=== PATIENT | female | born 1960 | race Caucasian/White ===

== ENCOUNTER 2018-03-04 04:31 | Inpatient (IN) | payer BC ==
[2018-03-04] VITALS (7 sets, daily range): BP systolic 125–187; BP diastolic 75–101; PULSE 83–97; TEMP 36.7–37.1; O2SAT 94–97; Ht 167.6 cm; Wt 85.3 kg
[~2018-03-04] VITALS: Ht 167.6 cm; Wt 85.3 kg
[2018-03-04] MEDS ORDERED: DIAZEPAM 5MG TAB PO ONE (06:43)
[2018-03-04] MEDS ORDERED: LORAZEPAM 2 MG/ML 1 ML VIAL IV PRN (06:45)
[2018-03-04] MEDS ORDERED: ONDANSETRON INJ 2 MG/ML 2 ML VIAL IV PRN (06:45)
[2018-03-04] MEDS ORDERED: DIAZEPAM 2MG TAB PO ONE (06:45)
--- NOTE | 2018-03-04 07:12 | History and Physical ---
History & Physical Date & Time of Service: Mar 04, 2018 at 06:58 Chief Complaint: Alcohol Withdrawl Primary Care Physician: Joseph Ortega D.O. History of Present Illness Source: patient Patient is a 57yo female with history of HTN, Hypothyroidism, EtOH abuse presenting to ER at [facility] complaining of leg cramping, tremors and headache x 1 day. Also with complaints of palpitations and feeling of anxiety. Patient has a significant history of EtOH abuse. She admits to drinking 4 shots/day for the last year. Her last drink was reported to be yesterday 18August at appx 22:00 when she had a glass of wine. She has been in EtOH withdrawals 5 times in the past. No history of seizure, no history of intubation. She has been to inpatient rehabilitation twice prior and has been in AA. She was to start a detox program yesterday, however was unhappy with the conditions at the facility and therefore left. Patient presently with complaint of calf cramping. No additional complaints at this time. She feels that these symptoms are similar to previous episodes of EtOH withdrawal. OSH: Ativan 1mg IV, NSS x 1 liter Past Medical/Surgical History Medical Problems: Hypertension Hypothyroidism EtOH abuse with history of withdrawal Anxiety Depression Pulmonary embolism Past Surgical History: Breast reduction x 3 Hysterectomy Tonsillectomy and adenoidectomy Cholecystectomy Ankle surgery Family History FH: dementia FH: diabetes mellitus Social History Smoking Status: Current Every Day Smoker Smokeless Tobacco Use: No Alcohol Use: heavy Drug Use: none Marital Status: Housing status: lives with family Occupational Status: unemployed Allergies Coded Allergies: BEE STING (Verified Allergy, Intermediate, unknown, 03/04/18) Lisinopril (Verified Allergy, Intermediate, unknown, 03/04/18) NUTS (Verified Allergy, Intermediate, unknown, 03/04/18) Penicillins (Verified Allergy, Intermediate, unknown, 03/04/18) Review of Systems Constitutional: No fever, No chills, No sweats, No weight loss, No weakness Eyes: No worsening of vision, No diplopia ENT: No hearing loss, No sore throat, No trouble swallowing Respiratory: No cough, No wheezing, No shortness of breath Cardiovascular: + palpitations, No chest pain Abdomen: No pain, No nausea, No vomiting, No diarrhea, No constipation Musculoskeletal: No joint pain, No muscle pain Genitourinary - Female: No dysuria, No urinary urgency Neurologic: + weakness (complaining of weakness in legs) Psychiatric: No depression symptoms Endocrine: No fatigue Hematologic / Lymphatic: No abnormal bleeding/bruising Integumentary: No rash Physical Exam General: patient resting in bed, nontoxic in appearance, tremulous, NAD, AA&O x 4, smells of EtOH Skin: warm, dry, intact, no rashes or lesions HEENT: NC/AT, pupils mildly dilated, briskly reactive bilaterally, EOMI, anicteric sclera, conjunctiva without injection, nares patent, moist mucus membranes, no oropharyngeal lesions, neck supple, trachea midline, no thyromegaly, no LAD Heart: +S1/S2, regular, no m/r/g Lungs: equal air entry bilaterally, no rales/rhonchi/wheezes Abdomen: soft, NT/ND,mild tenderness with RUQ palpation, no rebound/guarding Extremities: warm, well perfused, no clubbing/cyanosis or edema, 2+ palpable pulses in UE/LE bilaterally Neuro: grossly intact. Patient moves all extremities with equal strength 5/5 Diagnostics Laboratory Results Labs from OSH: NH4=43 Vkh=174 BUN=9.8 Cr=0.83 Prot=7.9 Alb=3.4 Ca=8.8 Tbili=0.9 Oq=967 K=3.7 Sx=266 CO2=22 VM=517 CPZ=493 LYS=263 KeIX=836 Ixnpub=941 WBC=6.18 Hg=10.7 Hct=31.8 Drd=729 EKG ordered Impression Assessment and Plan 57yo female presenting from OSH for EtOH withdrawal 1. EtOH withdraw - patient with history of the same. States she drinks 4 shots daily, although I suspect she drinks quite a bit more. She is presently tremulous and hypertensive. -Check CBC, PRP, Mg, PO4, LFTs, EtOH level, Urine toxicology, NH4 and lipase level -RUQUS for abdominal discomfort, abnormal LFTs at OSH -Banana bag x 1 -Valium 5mg po now then 5mg po q hourly until patient becomes drowsy -CIWA protocol with IV Ativan PRN -Thiamine 100mg po BID -Consider rehab placement after acute issues resolve 2. Hypertension - presently hypertensive, patient reports compliance with medications -Continue Losartan, Clonidine TID with caution 3. Anxiety/Depression - chronic -Continue Effexor 4. Hypothyroidism - chronic -Check TSH -Continue Synthroid 5. F/E/N - banana bag x 1 liter followed by NSS at 125ml/hr x 1 liter, check electrolytes, AHA diet as tolerated 6. Ppx - Lovenox for DVT prophylaxis 7. Code -Full per discussion with patient 8. Dispo - admit to telemetry Resuscitation Status Full VTE Prophylaxis Will order VTE Prophylaxis: Yes Note Total Time: Critical Care 30 - 74 minutes
[2018-03-04] MEDS ORDERED: THIAMINE HCL 100 MG TAB PO SCH (07:15)
[2018-03-04] MEDS ORDERED: MULTI-VITAMIN INFUSION INJ 10 ML, THIAMINE HCL INJ 100 MG, FoLIC ACID INJ 1 MG in SODIU... IV ONE (07:30)
[2018-03-04 07:56] LABS: INR 1.1 (0.9-1.1)
[2018-03-04 08:31] LABS: CALCIUM 8.3 mg/dl (8.5-10.1); CREATININE 0.64 mg/dl (0.60-1.20); PHOSPHORUS 1.8 mg/dl (2.5-4.9); POTASSIUM 3.4 mmol/L (3.5-5.1); TOTAL PROTEIN 7.2 gm/dl (6.4-8.2)
[2018-03-04 09:04] LABS: HEMOGLOBIN 10.5 g/dL (12.0-16.0); MEAN CELL VOLUME 97.3 fL (80-100); MEAN CORPUSCULAR HEMOGLOBIN 31.9 pg (25-34); MEAN CORPUSCULAR HGB CONC 32.8 g/dl (32-36); MEAN PLATELET VOLUME 11.1 fL (7.4-10.4); PLATELET COUNT 90 K/uL (130-400); RED CELL DISTRIBUTION WIDTH CV 17.4 % (11.5-14.5); RED CELL DISTRIBUTION WIDTH SD 62.6 fL (36.4-46.3); WHITE BLOOD COUNT 3.56 K/uL (4.8-10.8)
[2018-03-04] MEDS: VENLAFAXINE HCL XR 150 MG CAPXR PO SCH (09:12)
[2018-03-04] MEDS: NICOTINE 14 MG/24 HR TDSY TD SCH (09:12)
[2018-03-04] MEDS: SPIRONOLACTONE 25 MG TAB PO SCH (09:12)
[2018-03-04] MEDS: LOSARTAN POTASSIUM 50 MG TAB PO SCH (09:12)
[2018-03-04] MEDS: THIAMINE HCL 100 MG TAB PO SCH ×2 (09:12→20:41)
[2018-03-04] MEDS: CLONIDINE HCL 0.3 MG TAB PO SCH ×3 (09:13→20:41)
[2018-03-04] MEDS ORDERED: SODIUM CHLORIDE 0.9% 1000ML 1,000 ML IV SCH (09:31)
[2018-03-04] MEDS: ENOXAPARIN 40 MG/0.4 ML SYR SC SCH (10:08)
[2018-03-04] MEDS: MAGNESIUM OXIDE 400 MG TAB PO SCH ×2 (10:08→20:40)
--- NOTE | 2018-03-04 14:55 | DIAGNOSTIC IMAGING REPORT ---
(LIVER) ABDOMEN LIMITED CLINICAL HISTORY: 57 years-old Female presenting with abnormal lfts. TECHNIQUE: Real-time grayscale and limited color Doppler ultrasound imaging of the abdomen limited to the right upper quadrant was performed. COMPARISON: None. FINDINGS: Pancreas: Visualized portions of the pancreatic head and body normal. Liver: Nodular contour with hyperechogenic parenchyma and heterogeneous echotexture, consistent with cirrhosis. The liver measures 13.1 cm in maximal sagittal dimension. Hypoechoic region in the posterior left hepatic lobe is ill-defined and measures 3.7 x 3.2 x 2.7 cm. This is indeterminant and a focal mass lesion is not excluded. Main portal vein patent with normal directional flow. Biliary: No intrahepatic biliary ductal dilatation. Common bile duct measures up to 4 mm in diameter. Gallbladder: Surgically absent. Right kidney: Normal in appearance without evidence of hydronephrosis. Ascites: None. Other: None. IMPRESSION: Cirrhosis. Ill-defined hypoechoic region in the left hepatic lobe; underlying mass not excluded. Further evaluation with contrast-enhanced CT or MR using a dedicated liver protocol recommended. Electronically signed by: Bonilla Walter M.D. 03/04/2018 2:53 PM Dictated Date/Time: 03/04/2018 2:52 PM
--- NOTE | 2018-03-04 15:45 | Progress Note ---
Subjective Date of Service: Mar 04, 2018. Subjective Pt evaluation today including: conversation w/ patient, conversation w/ family , physical exam, chart review, lab review, review of studies, conversation w/ quality assurance consultant, review of inpatient medication list Report feeling a lot better, however still have a tremor, she is eating lunch by herself, conversational, Review of Systems Constitutional: + weakness, + fatigue, No fever, No chills, No sweats, No weight loss, No problem reported Eyes: No worsening of vision, No eye pain, No redness, No discharge, No diplopia ENT: No hearing loss, No unusual epistaxis, No nasal symptoms, No sore throat, No tinnitus, No dental problems, No trouble swallowing Respiratory: No cough, No sputum, No wheezing, No shortness of breath, No dyspnea on exertion, No dyspnea at rest, No hemoptysis Cardiac: No chest pain, No orthopnea, No PND, No edema, No claudication, No palpitations Abdomen: No pain, No nausea, No vomiting, No diarrhea, No constipation Musculoskeletal: No joint pain, No muscle pain, No swelling, No calf pain Female : No dysuria, No urinary frequency, No hematuria, No incontinence, No abnormal vaginal bleeding, No vaginal discharge Neurologic: No memory loss, No paralysis, No weakness, No numbness/tingling, No vertigo, No balance problems Psychiatric: + anxiety, No depression symptoms, No anhedonism, No insomnia, No substance abuse Heme: No abnormal bleeding/bruising, No clotting problems, No swollen lymph nodes, No night sweats Endo: No fatigue, No excessive thirst, No excessive urination Skin: No rash, No itch, No new/changing skin lesions, No color change, No bleeding Objective Vital Signs Date Time Temp Pulse Resp B/P (MAP) Pulse Ox O2 Delivery O2 Flow Rate FiO2 03/04/18 15:06 36.7 95 18 151/90 (110) 94 Room Air 03/04/18 10:53 37.1 88 20 125/75 (92) 94 Room Air 03/04/18 09:12 36.9 83 20 167/94 (118) 95 Room Air 03/04/18 08:08 37.1 88 20 187/98 (127) 95 Room Air 03/04/18 08:00 Room Air 03/04/18 06:49 36.7 97 16 160/101 97 Room Air Physical Exam General Appearance: WD/WN, no apparent distress, + pertinent finding (Mild anxious,) Eyes: normal inspection, PERRL, EOMI, sclerae normal ENT: normal ENT inspection, hearing grossly normal, pharynx normal Neck: supple, no adenopathy, thyroid normal, no JVD, no carotid bruits, trachea midline Respiratory/Chest: chest non-tender, normal breath sounds, no respiratory distress, no accessory muscle use, + decreased breath sounds Cardiovascular: regular rate, rhythm, no edema, no gallop, no JVD, no murmur Abdomen: normal bowel sounds, non tender, soft, no organomegaly, no pulsatile mass Extremities: normal range of motion, non-tender, normal inspection, no pedal edema, no calf tenderness, normal capillary refill, pelvis stable Neurologic/Psychiatric: plane runner II-XII nml as tested, no motor/sensory deficits, alert, normal mood/affect, oriented x 3 Skin: normal color, warm/dry, no rash Lymphatic: no adenopathy Laboratory Results Last 24 Hours Test 03/04/18 07:22 03/04/18 07:24 03/04/18 07:35 03/04/18 14:10 Prothrombin Time 11.6 SECONDS Prothromb Time International Ratio 1.1 Activated Partial Thromboplast Time 27.0 SECONDS Partial Thromboplastin Ratio 1.0 Sodium Level 140 mmol/L Potassium Level 3.4 mmol/L Chloride Level 109 mmol/L Carbon Dioxide Level 23 mmol/L Anion Gap 8.0 mmol/L Blood Urea Nitrogen 7 mg/dl Creatinine 0.64 mg/dl Est Creatinine Clear Calc Drug Dose 108.4 ml/min Estimated GFR () 115.6 Estimated GFR (Non- 99.8 BUN/Creatinine Ratio 11.2 Random Glucose 98 mg/dl Calcium Level 8.3 mg/dl Phosphorus Level 1.8 mg/dl Magnesium Level 1.4 mg/dl Total Bilirubin 0.8 mg/dl Direct Bilirubin 0.4 mg/dl Aspartate Amino Transf (AST/SGOT) 222 U/L Alanine Aminotransferase (ALT/SGPT) 112 U/L Alkaline Phosphatase 165 U/L Total Creatine Kinase 647 U/L Total Protein 7.2 gm/dl Albumin 3.0 gm/dl Globulin 4.2 gm/dl Albumin/Globulin Ratio 0.7 Lipase 250 U/L Vitamin B12 Level 957 pg/mL Folate 10.14 ng/mL Thyroid Stimulating Hormone (TSH) 2.310 uIu/ml Ethyl Alcohol mg/dL 96.4 mg/dl White Blood Count 3.56 K/uL Red Blood Count 3.29 M/uL Hemoglobin 10.5 g/dL Hematocrit 32.0 % Mean Corpuscular Volume 97.3 fL Mean Corpuscular Hemoglobin 31.9 pg Mean Corpuscular Hemoglobin Concent 32.8 g/dl RDW Standard Deviation 62.6 fL RDW Coefficient of Variation 17.4 % Platelet Count 90 K/uL Mean Platelet Volume 11.1 fL Platelet Estimate DECREASED Ammonia 17.2 umol/L Urine Opiates Screen NEG Urine Methadone, Qualitative NEG Urine Barbiturates NEG Urine Phencyclidine (PCP) Level NEG Ur Amphetamine/Methamphetamine NEG MDMA (Ecstasy) Screen NEG Urine Benzodiazepines Screen POS Urine Cocaine Metabolite NEG Urine Marijuana (THC) NEG Assessment and Plan 57yo female admitted on March 04, 2018 through transferring from OSH for EtOH withdrawal EtOH withdraw History of alcohol withdrawal, drinks 4 shots daily, Patient still tremor and hypertensive and anxious, Continue CIWA protocol with IV Ativan PRN, continue thiamine 100mg po BID Possible need rehab placement after acute issues resolve, patient lives alone, however she want me to discharge her to home already today Hypertension - presently hypertensive, Continue Losartan, Clonidine TID with caution Hypokalemia, replaced Anxiety/Depression - chronic, Continue Effexor Hypothyroidism , TSH was normal, continue Synthroid PTOT clinical social worker for the discharge plan Continued [facility] stay due to: multiple IV medications needed Discharge planning: home
[2018-03-04] MEDS ORDERED: POTASSIUM CHLORIDE 10 MEQ TABCR PO ONE (16:00)
[2018-03-04] MEDS: ACETAMINOPHEN 325 MG TAB PO PRN (19:48)
[2018-03-04] MEDS: DIAZEPAM 5MG TAB PO PRN (23:35)
[2018-03-05 03:33] VITALS: BP 161/103; PULSE 81; TEMP 37.2; O2SAT 95
[2018-03-05] MEDS: LEVOTHYROXINE 50 MCG TAB PO SCH (06:02)
[2018-03-05 07:30] VITALS: BP 178/101
[2018-03-05] MEDS: VENLAFAXINE HCL XR 150 MG CAPXR PO SCH (07:42)
[2018-03-05] MEDS: ENOXAPARIN 40 MG/0.4 ML SYR SC SCH (07:42)
[2018-03-05] MEDS: NICOTINE 14 MG/24 HR TDSY TD SCH (07:43)
[2018-03-05] MEDS: LOSARTAN POTASSIUM 50 MG TAB PO SCH (07:43)
[2018-03-05] MEDS: THIAMINE HCL 100 MG TAB PO SCH ×2 (07:43→21:36)
[2018-03-05] MEDS: CLONIDINE HCL 0.3 MG TAB PO SCH ×3 (07:43→21:36)
[2018-03-05] MEDS: MAGNESIUM OXIDE 400 MG TAB PO SCH ×2 (07:43→21:35)
[2018-03-05] MEDS: SPIRONOLACTONE 25 MG TAB PO SCH (07:44)
[2018-03-05 08:00] VITALS: BP 150/91; O2SAT 95
[2018-03-05] MEDS ORDERED: OPTIRAY 320 IV PRN (08:15)
[2018-03-05 08:35] LABS: CALCIUM 8.1 mg/dl (8.5-10.1); CREATININE 0.67 mg/dl (0.60-1.20); PHOSPHORUS 1.5 mg/dl (2.5-4.9); POTASSIUM 3.9 mmol/L (3.5-5.1)
[2018-03-05] MEDS ORDERED: NURSING VERBAL MED ORDER ONE (08:45)
[2018-03-05 09:09] LABS: ALBUMIN 2.7 gm/dl (3.4-5.0); TOTAL PROTEIN 6.7 gm/dl (6.4-8.2)
[2018-03-05] MEDS ORDERED: POTASSIUM PHOSPHATE INJ 30 MMOL in SODIUM CHLORIDE 0.9% 500ML 500 ML IV ONE (09:15)
--- NOTE | 2018-03-05 09:24 | DIAGNOSTIC IMAGING REPORT ---
CT OF THE ABDOMEN WITH AND WITHOUT CONTRAST LIVER PROTOCOL CLINICAL HISTORY: Abnormal ultrasound demonstrating possible liver lesion. COMPARISON STUDY: Liver ultrasound March 04, 2018. TECHNIQUE: Unenhanced, arterial and portal venous phase imaging of the abdomen was performed. Intravenous injection of 94 cc Optiray 320 IV was uneventful. FINDINGS: There are trace bilateral pleural effusions. The heart is mildly enlarged. Subsegmental left lower lobe atelectasis is noted. No pneumatosis, free air or portal venous gas is present within the abdomen. Paraesophageal varices are noted. Small amount of ascites is noted. Mesenteric infiltration is likely due to portal hypertension. Additional collaterals are noted. The liver is cirrhotic. No hypervascular hepatic lesions are identified. No lesions are identified on the portal venous phase. The possible lesion shown on ultrasound of March 04, 2018 was likely artifactual. Mild biliary ductal dilatation is likely due to cholecystectomy. There is no pancreatic ductal dilatation. The spleen is mildly enlarged. The adrenal glands, pancreas and kidneys are unremarkable. Mild wall thickening of the a sending colon is noted. The main, left and right portal veins are patent. IMPRESSION: 1. Cirrhosis with manifestations of portal hypertension including mild splenomegaly, small ascites and varices formation. 2. No hepatic lesion identified. The possible lesion shown on ultrasound of March 04, 2018 was likely artifactual. 3. Mild right colon wall thickening which is likely due to portal hypertension. A nonspecific colitis could appear similar although is considered less likely. Electronically signed by: Miguel Uribe M.D. 03/05/2018 9:23 AM Dictated Date/Time: 03/05/2018 9:09 AM
--- NOTE | 2018-03-05 12:55 | Progress Note ---
Subjective Date of Service: Mar 05, 2018. Subjective Pt evaluation today including: conversation w/ patient, physical exam, chart review, lab review, review of studies, review of inpatient medication list Was anxious this morning associated with tachycardia , tremor and elevated blood pressure, got 1 dose of Ativan IV 1 mg, which help, Much better when I seen her, she was eating lunch, mild rest tremor, Review of Systems Constitutional: + weakness, + fatigue, No fever, No chills, No sweats, No weight loss, No problem reported Eyes: No worsening of vision, No eye pain, No redness, No discharge, No diplopia ENT: No hearing loss, No unusual epistaxis, No nasal symptoms, No sore throat, No tinnitus, No dental problems, No trouble swallowing Respiratory: No cough, No sputum, No wheezing, No shortness of breath, No dyspnea on exertion, No dyspnea at rest, No hemoptysis Cardiac: No chest pain, No orthopnea, No PND, No edema, No claudication, No palpitations Abdomen: No pain, No nausea, No vomiting, No diarrhea, No constipation Musculoskeletal: No joint pain, No muscle pain, No swelling, No calf pain Female : No dysuria, No urinary frequency, No hematuria, No incontinence, No abnormal vaginal bleeding, No vaginal discharge Neurologic: No memory loss, No paralysis, No weakness, No numbness/tingling, No vertigo, No balance problems Psychiatric: + anxiety, No depression symptoms, No anhedonism, No insomnia, No substance abuse Heme: No abnormal bleeding/bruising, No clotting problems, No swollen lymph nodes, No night sweats Endo: No fatigue, No excessive thirst, No excessive urination Skin: No rash, No itch, No new/changing skin lesions, No color change, No bleeding Objective Vital Signs Date Time Temp Pulse Resp B/P (MAP) Pulse Ox O2 Delivery O2 Flow Rate FiO2 03/05/18 08:00 150/91 (110) 03/05/18 08:00 95 Room Air 03/05/18 07:30 178/101 (126) 03/05/18 03:33 37.2 81 17 161/103 (122) 95 Room Air 03/04/18 23:19 37.0 85 17 136/86 (103) 96 Room Air 03/04/18 20:00 Room Air 8/18/18 19:02 36.8 94 20 138/90 (106) 95 Room Air 03/04/18 15:28 Room Air 03/04/18 15:06 36.7 95 18 151/90 (110) 94 Room Air Physical Exam General Appearance: WD/WN, no apparent distress, + pertinent finding (Anxious,) Eyes: normal inspection, PERRL, EOMI, sclerae normal ENT: normal ENT inspection, hearing grossly normal, pharynx normal Neck: supple, no adenopathy, thyroid normal, no JVD, no carotid bruits, trachea midline Respiratory/Chest: chest non-tender, lungs clear, normal breath sounds, no respiratory distress, no accessory muscle use Cardiovascular: regular rate, rhythm, no edema, no gallop, no JVD, no murmur Abdomen: normal bowel sounds, non tender, soft, no organomegaly, no pulsatile mass Extremities: normal range of motion, non-tender, normal inspection, no pedal edema, no calf tenderness, normal capillary refill, pelvis stable Neurologic/Psychiatric: sheet rock taper helper II-XII nml as tested, no motor/sensory deficits, alert, normal mood/affect, oriented x 3, + pertinent finding (Mild tremor,) Skin: normal color, warm/dry, no rash Lymphatic: no adenopathy Laboratory Results Last 24 Hours Test 03/04/18 14:10 03/05/18 06:48 Urine Opiates Screen NEG Urine Methadone, Qualitative NEG Urine Barbiturates NEG Urine Phencyclidine (PCP) Level NEG Ur Amphetamine/Methamphetamine NEG MDMA (Ecstasy) Screen NEG Urine Benzodiazepines Screen POS Urine Cocaine Metabolite NEG Urine Marijuana (THC) NEG Sodium Level 137 mmol/L Potassium Level 3.9 mmol/L Chloride Level 107 mmol/L Carbon Dioxide Level 21 mmol/L Anion Gap 9.0 mmol/L Blood Urea Nitrogen 8 mg/dl Creatinine 0.67 mg/dl Est Creatinine Clear Calc Drug Dose 103.5 ml/min Estimated GFR () 113.9 Estimated GFR (Non- 98.3 BUN/Creatinine Ratio 11.8 Random Glucose 92 mg/dl Calcium Level 8.1 mg/dl Phosphorus Level 1.5 mg/dl Magnesium Level 1.4 mg/dl Total Bilirubin 1.5 mg/dl Direct Bilirubin 0.6 mg/dl Aspartate Amino Transf (AST/SGOT) 165 U/L Alanine Aminotransferase (ALT/SGPT) 89 U/L Alkaline Phosphatase 158 U/L Total Protein 6.7 gm/dl Albumin 2.7 gm/dl Assessment and Plan 57yo female admitted on March 04, 2018 through transferring from OSH for EtOH withdrawal Alcohol abuse disorder with EtOH withdraw History of alcohol withdrawal, drinks 4 shots daily, Continue tremor and hypertensive and anxious, Continue CIWA protocol with IV Ativan PRN, continue thiamine 100mg po BID, start Librium 25 mg scheduled twice daily today Patient was in several places rehab, he is agreeable to alcohol rehab , patient lives alone, Hypertension - presently hypertensive, Continue Losartan, Clonidine TID with caution Hypokalemia, replaced Anxiety/Depression - chronic, Continue Effexor Hypothyroidism , TSH was normal, continue Synthroid PTOT social work administrator for the discharge plan,. Patient interested in alcohol rehab Continued [facility] stay due to: multiple IV medications needed Discharge planning: home
[2018-03-05] MEDS ORDERED: CHLORDIAZEPOXIDE 25 MG CAP PO ONE (13:00)
[2018-03-05 13:24] VITALS: BP 168/98; PULSE 78; TEMP 37; O2SAT 94
[2018-03-05 15:12] VITALS: BP 154/98; PULSE 82; TEMP 37.2; O2SAT 97
[2018-03-05] MEDS: ACETAMINOPHEN 325 MG TAB PO PRN (18:25)
[2018-03-05 19:09] VITALS: BP 161/103; PULSE 80; TEMP 37.2; O2SAT 92
[2018-03-05] MEDS: DIAZEPAM 5MG TAB PO PRN ×2 (21:36→23:21)
[2018-03-05] MEDS: CHLORDIAZEPOXIDE 25 MG CAP PO SCH (21:36)
[2018-03-06 00:21] VITALS: BP 172/99; PULSE 71; TEMP 36.7; O2SAT 93
[2018-03-06 03:43] VITALS: BP 171/105; PULSE 69; TEMP 37; O2SAT 95
[2018-03-06] MEDS: DIAZEPAM 5MG TAB PO PRN (03:46)
[2018-03-06] MEDS: LEVOTHYROXINE 50 MCG TAB PO SCH (06:05)
[2018-03-06 07:21] LABS: ALBUMIN 2.7 gm/dl (3.4-5.0); CALCIUM 8.6 mg/dl (8.5-10.1); CREATININE 0.75 mg/dl (0.60-1.20); PHOSPHORUS 2.9 mg/dl (2.5-4.9); POTASSIUM 3.9 mmol/L (3.5-5.1); TOTAL PROTEIN 6.9 gm/dl (6.4-8.2)
[2018-03-06 07:38] VITALS: BP 158/92; PULSE 65; TEMP 36.8; O2SAT 96
[2018-03-06 08:00] VITALS: O2SAT 94
[2018-03-06] MEDS: MAGNESIUM OXIDE 400 MG TAB PO SCH (08:06)
[2018-03-06] MEDS: THIAMINE HCL 100 MG TAB PO SCH (08:06)
[2018-03-06] MEDS: CHLORDIAZEPOXIDE 25 MG CAP PO SCH (08:06)
[2018-03-06] MEDS: LOSARTAN POTASSIUM 50 MG TAB PO SCH (08:07)
[2018-03-06] MEDS: SPIRONOLACTONE 25 MG TAB PO SCH (08:07)
[2018-03-06] MEDS: NICOTINE 14 MG/24 HR TDSY TD SCH (08:07)
[2018-03-06] MEDS: VENLAFAXINE HCL XR 150 MG CAPXR PO SCH (08:07)
[2018-03-06] MEDS: CLONIDINE HCL 0.3 MG TAB PO SCH ×2 (08:07→12:17)
[2018-03-06] MEDS: ENOXAPARIN 40 MG/0.4 ML SYR SC SCH (08:08)
[2018-03-06 12:02] VITALS: BP 158/92; PULSE 65; TEMP 36.8; O2SAT 94
[2018-03-06 12:06] VITALS: BP 165/88; PULSE 68; TEMP 37; O2SAT 97
[2018-03-06] MEDS ORDERED: FLV1 PO (12:27)
[2018-03-06] MEDS ORDERED: VLM5 PO (12:27)
[2018-03-06] MEDS ORDERED: EFFSR150 PO (12:27)
[2018-03-06] MEDS ORDERED: CZR50 PO (12:27)
[2018-03-06] MEDS ORDERED: MGNO400 PO (12:27)
[2018-03-06] MEDS ORDERED: LBR25 PO (12:27)
[2018-03-06] MEDS ORDERED: CLON-460 PO (12:27)
[2018-03-06] MEDS ORDERED: SPIR25TA6 PO (12:27)
[2018-03-06] MEDS ORDERED: THIA100T10 PO (12:27)
[2018-03-06] MEDS ORDERED: SYN50 PO (12:27)
--- NOTE | 2018-03-06 12:35 | Discharge Instructions ---
Discharge Instructions Date of Service Mar 06, 2018. Admission Reason for Admission: Alcohol Withdrawal Discharge Discharge Diagnosis / Problem: Alcohol withdrawal Discharge Goals Goal(s): Improve function, Improve disease control, Specific goals (inpatient alcohol rehabilitation) Activity Recommendations Activity Limitations: per Instructions/Follow-up section Lifting Limitations: none Exercise/Sports Limitations: none May Resume Sexual Activity: when tolerated Shower/Bathe: no limitations Driving or Machine Use: no driving after taking Valium . Instructions / Follow-Up Instructions / Follow-Up Medications: all are listed as new because they were not entered at time of transfer, most of these are continued medications - LIBRIUM: take twice a day for the next week, this should help with tremors, withdrawal symptoms - VALIUM: take as needed up to every 8 hours for tremors, withdrawal symptoms - FOLATE: take once a day - VITAMIN B12: take twice a day - MAGNESIUM OXIDE: take twice a day, if you have loose stools then decrease to once a day Alcohol intoxication and then withdrawal, alcoholic cirrhosis currently treating withdrawal with Librium and Valium as needed as we discussed, strongly recommend that you follow up with social sciences chair at home and arrange for inpatient alcohol rehab cannot stress importance of quitting enough as we talked about, you already have evidence of cirrhosis which is due to alcohol use if you continue to drink you will do further damage to the liver, damage to the liver is irreversible currently you are compensating for the cirrhosis but with further damage you could decompensate and develop ascites, renal failure, respiratory failure, high ammonia, bleeding FOLLOW UP - social sciences chair in 1-2 days to help arrange for inpatient alcohol rehabilitation program - Dr. Ortega in one week for hospital follow up Current Hospital Diet Patient's current hospital diet: AHA Diet (Heart Healthy) Discharge Diet Recommended Diet: AHA Diet (Heart Healthy) Pending Studies Studies pending at discharge: no Medical Emergencies . Who to Call and When: Medical Emergencies: If at any time you feel your situation is an emergency, please call 911 immediately. . Non-Emergent Contact Non-Emergency issues call your: Primary Care Provider Call Non-Emergent contact if: you have any medication questions . . "Provider Documentation" section prepared by Dudley Castro. . [place] Drug Monitoring Program Search Results: no issues identified
--- NOTE | 2018-03-06 16:31 | Discharge Summary ---
Discharge Summary Date of Service Mar 06, 2018. Discharge Summary Admission Date: Mar 04, 2018 at 06:28 Discharge Date: Mar 06, 2018 Discharge Disposition: Home Principal Diagnosis: Alcohol withdrawal Problems/Secondary Diagnoses: Alcohol abuse Cirrhosis Hypertension Hypothyroidism Procedures: none Consultations: none Medication Reconciliation New Medications: Chlordiazepoxide (Chlordiazepoxide HCl) 25 Mg Cap 25 MG PO Q12, #14 CAP 0 Refills Clonidine HCl (Clonidine HCl) 0.3 Mg Tab 0.3 MG PO TID, #90 TAB 1 Refill Diazepam (Diazepam) 5 Mg Tab 5 MG PO Q8H PRN for Anxiety/Agitation, #14 TAB 0 Refills Folic Acid (Folic Acid) 1 Mg Tab 1 MG PO QAM, #30 TAB 1 Refill Levothyroxine Sodium (Synthroid) 50 Mcg Tab 50 MCG PO DAILYBB, #30 TAB 1 Refill Losartan Potassium (Losartan Potassium) 50 Mg Tab 50 MG PO QAM, #30 TAB 3 Refills Magnesium Oxide (Magnesium-Oxide) 400 Mg Tab 400 MG PO BID, #60 TAB 1 Refill Spironolactone (Spironolactone) 25 Mg Tab 25 MG PO QAM, #30 TAB 3 Refills Thiamine Hcl (Vitamin B-1) 100 Mg Tab 100 MG PO BID, #60 TAB 1 Refill Venlafaxine Hcl (Effexor Extended Rel) 150 Mg Capcr 150 MG PO QAM, #30 TABS 3 Refills Discharge Exam Patient feeling well, required Valium at 3am but nothing since. No tremors, no increased anxiety. Discussed going to inpatient alcohol rehab directly, she now wanted to go home and meet with her social work msw at home. Recommended that she go to inpatient rehab but she did not want to. Discussed going home, she did not have family or friends to get her to [place]. D/w case management, they had [facility] arrange for transport back home. Discussed discharge plan with Valium as needed and using Librium scheduled for the next few days to help with withdrawal symptoms. She planned to follow up with her social work msw in 1-2 days. discussed her diagnosis of cirrhosis, she has been following with her PCP and had been referred to liver specialist. Review of Systems: Constitutional: No fever, No chills, No sweats, No weight loss, No weakness , No fatigue, No problem reported Eyes: No worsening of vision, No eye pain, No redness, No discharge, No diplopia, No problem reported ENT: No hearing loss, No unusual epistaxis, No nasal symptoms, No sore throat, No tinnitus, No dental problems, No trouble swallowing, No problem reported Respiratory: No cough, No sputum, No wheezing, No shortness of breath, No dyspnea on exertion, No dyspnea at rest, No hemoptysis, No problem reported Cardiovascular: No chest pain, No orthopnea, No PND, No edema, No claudication, No palpitations, No problem reported Abdomen: No pain, No nausea, No vomiting, No diarrhea, No constipation, No GI bleeding, No problem reported Musculoskeletal: No joint pain, No muscle pain, No swelling, No calf pain, No problem reported Genitourinary - Female: No dysuria, No urinary frequency, No urinary urgency , No urinary incontinence, No urinary retention, No hematuria Neurologic: No memory loss, No paralysis, No weakness, No numbness/tingling , No vertigo, No balance problems, No problem reported Psychiatric: + anxiety, + substance abuse (alcohol), No depression symptoms , No anhedonism, No insomnia, No problem reported Endocrine: No fatigue, No excessive thirst, No excessive urination, No problem reported Hematologic / Lymphatic: No abnormal bleeding/bruising, No clotting problems , No swollen lymph nodes, No night sweats, No problem reported Integumentary: No rash, No itch, No new/changing skin lesions, No color change, No bleeding, No problem reported Physical Exam: General Appearance: WD/WN, no apparent distress Eyes: normal inspection, EOMI, sclerae normal ENT: normal ENT inspection, hearing grossly normal, pharynx normal Neck: supple, no adenopathy, no JVD, trachea midline Respiratory/Chest: chest non-tender, lungs clear, normal breath sounds, no respiratory distress, no accessory muscle use Cardiovascular: regular rate, rhythm, no edema, no gallop, no JVD, no murmur , normal peripheral pulses Abdomen / GI: normal bowel sounds, non tender, soft, no organomegaly Extremities: normal inspection, no calf tenderness, normal capillary refill , no pedal edema, normal range of motion, non-tender, pelvis stable Neurologic/Psychiatric: 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 as tested, no motor/sensory deficits , alert, normal mood/affect, normal reflexes, oriented x 3 Skin: normal color, warm/dry, no rash Hospital Course 57yo female admitted on March 04, 2018 through transferring from OSH for EtOH withdrawal, concerns for low blood pressure Alcohol abuse disorder with EtOH withdraw History of alcohol withdrawal, drinks 4 shots or more daily treated with folic acid, vitamin B12 Librium 25mg q12 and Valium PRN tremors and anxiety controlled initially interested in direct transfer to inpatient rehab but now wants to go home first she is planning on meeting with her social work msw in 1-2 days advised her to continue the Librium and Valium as needed, to remain alcohol free discussed the damage she has done to liver, voiced understanding that further drinking will cause irreversible damage to liver Cirrhosis, alcohol continue Aldactone no evidence of decompensation as above, discussed importance of alcohol abstinence to prevent further irreversible liver damage she follows with her PCP and has been to see a groutman as outpatient Hypertension - continue Losartan, Clonidine TID Hypokalemia, replaced Anxiety/Depression - chronic, Continue Effexor Hypothyroidism , TSH was normal, continue Synthroid d/c to home, close follow up with social work msw and then plans to go to alcohol rehab Total Time Spent: Greater than 30 minutes This includes examination of the patient, discharge planning, medication reconciliation, and communication with other providers. Discharge Instructions Please refer to the electronic Patient Visit Report (Discharge Instructions) for additional information. Follow-Up social work msw and arrangements for alcohol rehab Additional Copies To Joseph Ortega D.O.
--- NOTE | 2018-03-13 08:49 | EDITING REQUIRED CODING QUERY ---
CODING QUERY To promote full compliance with coding requirements relating to patient care, provider participation is requested in all cases of die press operator uncertainty. Please assist us with the question(s) below: Coding Question(s): Dr. Castro In order to facilitate correct diagnostic code selection, please clarify the following: The patient has a significant history of EtOH abuse and admits to drinking 4 shots/day for the last year. During this admission, she was treated for alcohol withdrawal and referred to inpatient rehabilitation. Her toxicology screen showed ethyl alcohol levels of 94 mg/dl. Do the findings above indicate: (Select all that apply.) ( ) Alcohol dependence with withdrawal ( x ) Alcohol dependence with intoxication ( ) Alcohol abuse with other alcohol-induced disorder ( ) Alcohol abuse with intoxication ( ) Alcohol abuse, uncomplicated ( ) Other, please explain ( ) Unable to determine Physician's Response(s): Thank you for your time, ROJELIO Darling, PRODUCT CONSULTANT
== END 2018-03-06 13:20 | disposition home or self-care (01) | DRG 897 ==
LOC: C.MSICU 06:28 → ENRESERV 07:52 → C.2T 08:15
PROVIDERS: ADMIT Internal Medicine; ATTEND Internal Medicine
DX: F10.229 Alcohol dependence with intoxication, unspecified (principal); Y90.4 Blood alcohol level of 80-99 mg/100 ml; K70.30 Alcoholic cirrhosis of liver without ascites; T51.0X1A Toxic effect of ethanol, accidental (unintentional), initial encounter; G25.2 Other specified forms of tremor; E87.6 Hypokalemia; E83.39 Other disorders of phosphorus metabolism; F41.9 Anxiety disorder, unspecified; I10 Essential (primary) hypertension; F32.9 Major depressive disorder, single episode, unspecified; E03.9 Hypothyroidism, unspecified; F17.200 Nicotine dependence, unspecified, uncomplicated; Z86.711 Personal history of pulmonary embolism; Z88.0 Allergy status to penicillin; Z88.8 Allergy status to other drugs, medicaments and biological substances; Z91.030 Bee allergy status; Z91.018 Allergy to other foods